=== PATIENT | female | born 1930 ===

== ENCOUNTER 2017-05-03 13:27 | Outpatient (CLI) | payer MEDICARE, OTHER ==
--- NOTE | 2017-05-03 16:01 | XRay Report ---
XRAY RIGHT KNEE 4 THREE VIEWS: 05/03/17 CLINICAL: Right knee pain. FINDINGS: Mild osteopenia. Lateral joint space narrowing with small osteophytes. The medial joint space is normal with a small inferior osteophyte. Normal patellofemoral joint. No joint effusion.Vascular calcifications. 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
== END 2017-05-03 13:28 | disposition home or self-care (01) ==
LOC: SPVIMAG 13:27
PROVIDERS: ATTEND Orthopaedic Surgery Sports Medicine
DX: M17.11 Unilateral primary osteoarthritis, right knee (principal); M85.861 Other specified disorders of bone density and structure, right lower leg; M25.861 Other specified joint disorders, right knee